=== PATIENT | female | born 1980 | race Caucasian/White ===

== ENCOUNTER 2018-02-10 17:26 | Emergency (ER) | payer SELFPAY ==
[~2018-02-10] VITALS: Ht 180.3 cm; Wt 174.3 kg
[2018-02-10 17:36] VITALS: BP 164/91
--- NOTE | 2018-02-10 18:34 | NUR ---
JAIR CELL MANAGER AT BEDSIDE FOR EVAL.
--- NOTE | 2018-02-10 18:48 | NUR ---
RADIOLOGY AT BEDSIDE FOR LEFT LOWER EXTREMITY DUPLEX ULTRASOUND.
[2018-02-10] MEDS ORDERED: IBUPROFEN 400 MG TABLET PO ONE (19:00)
[2018-02-10] MEDS ORDERED: IBUPROFEN 400 MG TABLET ONE (19:06)
== END 2018-02-10 19:18 | disposition home or self-care (01) ==
LOC: ER 17:29
DX: S81.812A Laceration without foreign body, left lower leg, initial encounter (principal); I10 Essential (primary) hypertension; K21.9 Gastro-esophageal reflux disease without esophagitis; F41.9 Anxiety disorder, unspecified; F17.200 Nicotine dependence, unspecified, uncomplicated; F12.90 Cannabis use, unspecified, uncomplicated; X58.XXXA Exposure to other specified factors, initial encounter; Y93.01 Activity, walking, marching and hiking; Y92.89 Other specified places as the place of occurrence of the external cause; Y99.8 Other external cause status
CPT/HCPCS: 93971-TC; A4606; Z7610